=== PATIENT | female | born 1970 | race Caucasian/White ===

== ENCOUNTER 2016-12-18 22:43 | Emergency (ER) | payer OTHER ==
--- NOTE | 2016-12-27 07:34 | ER ---
ADMIT: 12/18/2016 RM/LOC: ER [facility] MR#: [id number] [id number] [address] [place] [address] Emergency Room Report SEX: F AGE: 46 : 1970 DATE: 12/18/2016 ADDENDUM: See T-sheet for complete H and P. A 46-year-old female, who presents complaining of nausea, vomiting, and diarrhea. She had vomiting begin about 24 hours ago with diarrhea shortly after that. Her vomiting has resolved for the past 15 hours but still nauseous and not able to take much by p.o. Her diarrhea has persisted and is watery. She states that she has subjectively had a fever. On examination, she has moist mucous membranes. She is not tachycardic. She has no abdominal pain. We did give her Zofran here and her symptoms of nausea were improved, is able to tolerate p.o. fluids. Was given Tylenol for fever. She is discharged home to use Tylenol for her fever, to increase her fluids as tolerated, use Zofran as needed, and follow up with the regular physician. DIAGNOSES: 1. Nausea, vomiting, and diarrhea. 2. Fever. Brandyn Chandler MD/ noman JOB #: [id number] CC: Brandyn Chandler MD, Attending Physician
== END 2016-12-19 00:10 | disposition home or self-care (01) ==
LOC: ER 22:43
DX: R11.2 Nausea with vomiting, unspecified (principal); R19.7 Diarrhea, unspecified; R50.9 Fever, unspecified; Z88.0 Allergy status to penicillin

== ENCOUNTER → 2017-02-06 | Outpatient (CLI) | payer OTHER | END | disposition home or self-care (01) | LOC: RAD.S 08:06 | DX: Z12.31 Encounter for screening mammogram for malignant neoplasm of breast (principal) ==